=== PATIENT | female | born 1985 | race Caucasian/White ===

== ENCOUNTER 2016-09-05 18:30 | Emergency (ER) | payer OTHER ==
[~2016-09-05] VITALS: Ht 165.1 cm; Wt 54.4 kg
[~2016-09-05 18:30] MED LIST: HYDR-2666 PO; IBUP1TAB7 PO
[2016-09-05] MEDS ORDERED: DIPHTH,PERTUSS(ACELL),TET TOX 0.5 ML DISP.SYRIN. VAX IM ONE (19:15)
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
[2016-09-05] MEDS ORDERED: HYDROCODONE/APAP 5/325MG TABLET. PO ONE (20:15)
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
[2016-09-05 21:31] VITALS: BP 117/73
--- NOTE | 2016-09-06 08:11 | RAD ---
Exam performed: One view chest. Indication: chest pain Date of Service: 09/05/2016 9:06 PM Comparison: None available. Single AP upright portable view chest findings: Cardiomediastinal silhouette is within limits of normal. No acute infiltrates, effusion or pneumothorax is detected. The bony structures are normal. Impression: No acute cardiopulmonary process is detected.
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
== END 2016-09-05 21:56 | disposition home or self-care (01) ==
LOC: ER 18:30
DX: S63.602A Unspecified sprain of left thumb, initial encounter (principal); M54.2 Cervicalgia; R51 Headache; G89.29 Other chronic pain; M54.5 Low back pain; R07.9 Chest pain, unspecified; M41.9 Scoliosis, unspecified; V89.2XXA Person injured in unspecified motor-vehicle accident, traffic, initial encounter; Y92.413 State road as the place of occurrence of the external cause; Y93.89 Activity, other specified; Y99.8 Other external cause status
CPT/HCPCS: 70450; 71010; 72125; 73130; 81025; 90471; 90715; 99284-25

== ENCOUNTER 2017-08-16 05:29 | Emergency (ER) | payer SELFPAY, OTHER | END 2017-08-16 06:51 | disposition home or self-care (01) | LOC: ER 05:29 | DX: S93.402A Sprain of unspecified ligament of left ankle, initial encounter (principal); S90.32XA Contusion of left foot, initial encounter; G89.29 Other chronic pain; F41.9 Anxiety disorder, unspecified; F32.9 Major depressive disorder, single episode, unspecified; F90.9 Attention-deficit hyperactivity disorder, unspecified type; M41.9 Scoliosis, unspecified; Z90.49 Acquired absence of other specified parts of digestive tract; Z98.51 Tubal ligation status; W18.39XA Other fall on same level, initial encounter; Y93.89 Activity, other specified; Y92.89 Other specified places as the place of occurrence of the external cause; Y99.8 Other external cause status | CPT/HCPCS: 73610; 73630; 99284 ==

== ENCOUNTER → 2021-03-22 | Outpatient (CLI) | payer OTHER ==
[2017-08-16 05:34] VITALS: BP 121/81
[~2021-03-22] MED LIST changes: -HYDR-2666 PO; +HYDR-2761 PO
== END ==
LOC: LAB 01:58
PROVIDERS: ATTEND Internal Medicine Pulmonary Disease
DX: R50.9 Fever, unspecified (principal); J02.9 Acute pharyngitis, unspecified; R09.81 Nasal congestion; Z20.822 Contact with and (suspected) exposure to COVID-19
CPT/HCPCS: U0003; U0005